=== PATIENT | male | born 1985 | race Caucasian/White ===

== ENCOUNTER 2023-01-21 17:08 | Emergency (ER) | payer OTHER, SELFPAY ==
[2023-01-21 17:23] VITALS: BP 129/74; PULSE 66; RESP 18; TEMP 36.2; O2SAT 99
--- NOTE | 2023-01-21 17:34 | ED.EAR ---
HPI - Ear Problem General Chief complaint: Ear Stated complaint: lt ear pain Time Seen by Provider: 01/21/23 17:26 Source: patient and RN notes reviewed Mode of arrival: ambulatory Limitations: no limitations History of Present Illness HPI Narrative: Patient presents today complaining of an intermittent piercing pain to the left ear since yesterday. Currently rates his pain 7/10, which increases with swallowing. He has been taking ibuprofen with some relief. States he is able to clear his ear with a Valsalva maneuver. 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 Denies recent illness or nasal congestion. Denies any drainage from the ear. Related Data Allergies Allergy/AdvReac Type Severity Reaction Status Date / Time No Known Allergies Allergy Verified 01/21/23 17:26 Review of Systems Review of Systems: CONSTITUTIONAL: Denies body aches, fever, chills, or sweats. EYES: Denies visual changes, redness, or discharge. ENT: Denies rhinorrhea, congestion, sore throat. + left ear pain CARDIOVASCULAR: Denies chest pain, palpitations, or edema. RESPIRATORY: Denies cough or dyspnea. GASTROINTESTINAL: Denies abdominal pain, nausea, vomiting, or diarrhea. GENITOURINARY: Denies dysuria or hematuria. SKIN: Denies rash, itching, or wounds. MUSCULOSKELETAL: Denies back pain, joint pain, or myalgia. NEUROLOGIC: Denies headache, numbness, tingling, or weakness. PSYCH: Denies depression or anxiety. PMFSH Comments At time of signature, I have reviewed and agree with nursing past medical, surgical, social and family history unless otherwise noted. Please see nursing chart for further information. There is no relevant family history pertinent to the presenting complaint Exam Narrative: GENERAL: Well-appearing, well-nourished, and in no acute distress. HEAD: Normocephalic, atraumatic. EYES: EOMI. No redness or drainage. Conjunctivae normal. ENT: Mucous membranes pink and moist. Nares clear. No rhinorrhea. Right TM normal. Left TM retracted. No sign of bacterial infection. No movement or tragal tenderness. NECK: Normal AROM. Supple. No lymphadenopathy. CHEST: No respiratory distress. EXTREMITIES: Normal range of motion. No edema. SKIN: Warm, dry, no rash. Capillary refill normal. Normal skin turgor. NEURO: No focal deficits. Alert and oriented x3. Gait steady. PSYCH: Normal affect. No signs of depression or anxiety. Course Course Level of Care: Express Care Visit Vital Signs Vital signs: Vital Signs Temperature 97.2 F L 01/21/23 17:23 Pulse Rate 66 01/21/23 17:23 Respiratory Rate 18 01/21/23 17:23 Blood Pressure 129/74 01/21/23 17:23 Pulse Oximetry 99 01/21/23 17:23 Oxygen Delivery Room Air 01/21/23 17:23 Temperature 97.2 F L 01/21/23 17:23 Pulse Rate 66 01/21/23 17:23 Respiratory Rate 18 01/21/23 17:23 Blood Pressure 129/74 01/21/23 17:23 Pulse Oximetry 99 01/21/23 17:23 Oxygen Delivery Room Air 01/21/23 17:23 Reviewed. Pt has been instructed to follow up with his PCP regarding his elevated blood pressure today. Medical Decision Making MDM Narrative Medical decision making narrative: No infection present. Instructed patient to use Flonase and Sudafed. Will send over short course of prednisone to see if this will help with patient's discomfort. Anticipatory guidance given. Differential Diagnosis Differential Diagnosis: Otitis media, otitis externa, ruptured TM, serous otitis, eustachian tube dysfunction, cerumen impaction Vital Signs Vital Signs: Vital Signs Temperature 97.2 F L 01/21/23 17:23 Pulse Rate 66 01/21/23 17:23 Respiratory Rate 18 01/21/23 17:23 Blood Pressure 129/74 01/21/23 17:23 Pulse Oximetry 99 01/21/23 17:23 Oxygen Delivery Room Air 01/21/23 17:23 Temperature 97.2 F L 01/21/23 17:23 Pulse Rate 66 01/21/23 17:23 Respiratory Rate 18 01/21/23 17:23
== END 2023-01-21 17:43 | disposition home or self-care (01) ==
PROVIDERS: Emergency Provider Nurse Practitioner
DX: H73.892 Other specified disorders of tympanic membrane, left ear (principal); Z98.52 Vasectomy status
CPT/HCPCS: 99203; G0463

== ENCOUNTER 2023-06-07 14:10 | Emergency (ER) | payer OTHER, SELFPAY ==
[2023-06-07 14:16] VITALS: BP 124/73; PULSE 78; RESP 16; TEMP 36.7; O2SAT 98
--- NOTE | 2023-06-07 14:24 | ED.URI ---
HPI - URI/Sore Throat General Chief Complaint: Upper Respiratory Infection Stated Complaint: Sore Throat Time Seen by Provider: 06/07/23 14:24 Source: patient Mode of arrival: ambulatory Limitations: no limitations History of Present Illness HPI Narrative: 38-year-old male presents with complaint of fatigue, body aches, sore throat for 3 days. Reports sore throat worse last night. looked at throat and saw white spots. Denies nausea vomiting diarrhea. Afebrile. No cough or congestion. Take home COVID test that was negative. All systems reviewed and negative except as noted above. Related Data Home Medications Medication Instructions Recorded Confirmed No Home Medications 06/07/23 06/07/23 Allergies Allergy/AdvReac Type Severity Reaction Status Date / Time No Known Allergies Allergy Verified 06/07/23 14:12 Review of Systems Review of Systems: CONSTITUTIONAL: Denies fever, chills, or sweats. EYES: Denies visual changes, redness, or discharge. ENT: Denies rhinorrhea, congestion . Reports sore throat. Denies otalgia. CARDIOVASCULAR: Denies chest pain, palpitations, or edema. RESPIRATORY: Denies cough or dyspnea. GASTROINTESTINAL: Denies abdominal pain, nausea, vomiting, or diarrhea. GENITOURINARY: Denies dysuria or hematuria. SKIN: Denies rash or itching. MUSCULOSKELETAL: Denies back pain, joint pain, or myalgia. NEUROLOGIC: Denies headache, numbness, or weakness. PSYCHIATRIC: Denies anxiety or depression. All other systems reviewed are negative, except as documented in HPI. PMFSH Comments At time of signature, agree with nursing past medical, surgical, social and family history. There is no relevant family history pertinent to the presenting complaint. Exam Narrative: GENERAL: This is a well-nourished, well-developed patient, in no apparent distress. HEAD: normocephalic, atraumatic. EYES: PERRL. Sclera clear/white. Vision is grossly intact. EARS: External ears normal, auditory canals clear and without drainage, TMs normal without perforation. Hearing grossly intact. NOSE: External nose normal with no obvious nasal discharge, nares without redness, no rhinorrhea. THROAT: Mucous membranes moist, mild erythema without swelling. No tonsillar swelling or exudates. NECK: Neck supple, non-tender without lymphadenopathy, masses or thyromegaly. CARDIOVASCULAR: Regular rate and rhythm without murmurs, gallops, or rubs. RESPIRATORY: Clear to auscultation. Breath sounds equal bilaterally. No wheezes, rales, or rhonchi. SKIN: warm, Dry, intact with no suspicious lesions or rash, good texture and turgor. NEURO: awake, alert, and oriented to person, place and time. There were no obvious focal neurologic abnormalities. EXTREMITIES: No joint tenderness, effusion, or edema noted. Course Course Level of Care: Express Care Visit Vital Signs Vital signs: Vital Signs Temperature 36.7 C 06/07/23 14:16 Pulse Rate 78 06/07/23 14:16 Respiratory Rate 16 06/07/23 14:16 Blood Pressure 124/73 06/07/23 14:16 Pulse Oximetry 98 06/07/23 14:16 Oxygen Delivery Room Air 06/07/23 14:16 Temperature 36.7 C 06/07/23 14:16 Pulse Rate 78 06/07/23 14:16 Respiratory Rate 16 06/07/23 14:16 Blood Pressure 124/73 06/07/23 14:16 Pulse Oximetry 98 06/07/23 14:16 Oxygen Delivery Room Air 06/07/23 14:16 Reviewed MDM - URI/Sore Throat MDM Narrative Medical decision making narrative: Patient is aware of diagnosis, understands and agrees to treatment plan. Anticipatory guidance given. Patient agrees to follow-up as directed and is aware of reasons to seek care at the emergency department. Portions of this record may have been created with voice recognition software negative rapid strep test. Will wait for strep culture prior to treating with antibiotics. Patient agrees with plan of care. Discharge Plan Discharge Clinical Impression: Acute viral pharyngitis
== END 2023-06-07 14:40 | disposition home or self-care (01) ==
PROVIDERS: Emergency Provider Nurse Practitioner Family
DX: J02.9 Acute pharyngitis, unspecified (principal); Z86.16 Personal history of COVID-19; Z98.52 Vasectomy status
CPT/HCPCS: 87081; 87880; 99213; G0463